=== PATIENT | female | born 1945 | race Caucasian/White ===

== ENCOUNTER 2021-06-05 14:29 | Observation (INO) | payer MEDICARE, OTHER ==
[~2021-06-05] VITALS: Ht 158.8 cm; Wt 70.6 kg
[2021-06-05] MEDS ORDERED: NS 1,000 ML IV ONE (15:35)
[2021-06-05] MEDS ORDERED: EMLA CREAM 5GM TUBE (LIDOCAINE/PRILOCAINE) TOP ONE (15:40)
[2021-06-05 16:52] LABS: EOS % 1.4 % (0.0-3.0); HEMOGLOBIN 7.5 g/dl (12.0-15.5); LYMPH # 0.4 10^3/uL (1.5-5.0); LYMPH % 58.3 % (24.0-44.0); MEAN CORPUSCULAR HEMOGLOBIN 27.8 pg (27.0-33.0); MEAN CORPUSCULAR HGB CONC 32.6 g/dl (32.0-36.5); MEAN CORPUSCULAR VOLUME 85.2 fl (80.0-96.0); MONO # 0.1 10^3/uL (0.0-0.8); MONO % 15.3 % (2.0-8.0)
[2021-06-05 17:16] LABS: ALBUMIN 2.5 GM/DL (3.2-5.2); BILIRUBIN,TOTAL 1.9 MG/DL (0.2-1.0); CALCIUM LEVEL 8.1 MG/DL (8.8-10.2); CREATININE FOR GFR 1.23 MG/DL (0.55-1.30); GLOMERULAR FILTRATION RATE 45.6 (>39); MAGNESIUM LEVEL 1.5 MG/DL (1.8-2.4); PLATELET COUNT, AUTOMATED 76 10^3/uL (150-450); POTASSIUM SERUM 3.3 MEQ/L (3.5-5.1); TOTAL PROTEIN 5.2 GM/DL (6.4-8.2); WHITE BLOOD COUNT 0.7 10^3/uL (4.0-10.0)
[2021-06-05] MEDS ORDERED: METO1TAB7 PO (17:18)
[2021-06-05] MEDS ORDERED: AMLO1TAB25 PO (17:18)
[2021-06-05] MEDS ORDERED: LOPE1CAP5 PO (17:18)
[2021-06-05] MEDS ORDERED: CYMB1CAP5 PO (17:18)
[2021-06-05] MEDS ORDERED: ANAS1TAB2 (17:18)
[2021-06-05] MEDS ORDERED: ATOR1TAB19 PO (17:18)
[2021-06-05] MEDS ORDERED: ALPR0.25 PO (17:18)
[2021-06-05] MEDS ORDERED: RAMI1CAP26 PO (17:18)
[2021-06-05] MEDS ORDERED: ONDA8TAB10 PO (17:18)
[2021-06-05] MEDS ORDERED: CLON-412 PO (17:18)
[2021-06-05 17:19] LABS: NEUTROPHILS # 0.2 10^3/uL (1.5-8.5)
[2021-06-05] MEDS ORDERED: MAG SULF 1GM/100ML (MAG RUN) 1 GM in IV 1 EA IV ONE ×4 (17:35)
[2021-06-05] MEDS ORDERED: POTASSIUM CHLORIDE 10 MEQ SR TABLET PO ONE (17:35)
[2021-06-05] MEDS ORDERED: MAALOX 30 ML SUSP *UDC PO PRN (20:05)
[2021-06-05] MEDS ORDERED: DEXA2TA PO (20:05)
[2021-06-05] MEDS ORDERED: MOM 30ML SUSPENSION UDC PO PRN (20:05)
[2021-06-05] MEDS ORDERED: OYST1TAB PO (20:05)
[2021-06-05] MEDS ORDERED: ACETAMINOPHEN TAB 650MG DOSE (2X325MG) PO PRN (20:05)
[2021-06-05] MEDS ORDERED: PEGFILGRASTIM 6 MG/0.6ML SYR (NEULASTA) (J2505 PER 6MG) SC ONE ×2 (20:05→22:00)
--- NOTE | 2021-06-05 20:09 | HPEPDOC ---
[facility] Medical History & Physical Date of Admission Jun 05, 2021 Date of Service: Jun 05, 2021 Other Provider Juju Ramirez Attending Physician: HIRAL BRANDON MD History and Physical TIME OF SERVICE: 933pm CHIEF COMPLAINT: diarrhea HISTORY OF PRESENT ILLNESS: is a 75 yr old F who had her last dose of 4 cycles of chemo for breast cancer, at [facility], on May 30. Today she presented w c/o, non-bloody diarrhea that begun on Thursday, weakness, poor appetite & difficulties walking. She denied having v/f/c. Because she was found to have pancytopenia, consulted the Hem/Onc service at [facility] who recommended Neulasta and supportive care. REVIEW OF SYSTEMS: 10-point review of systems negative except as listed in HPI PAST MEDICAL/ SURGICAL HISTORY: Stage 2 breast cancer s/p lumpectomy and chemo, Resistant HTN, DLP, Hypothyroidism, anxiety /depression, Partial thyroidectomy (benign lesion), cataract surgery, SOCIAL HISTORY: she doesnt smoke or use alcohol FAMILY HISTORY: n/a ALLERGIES: Please see below. HOME MEDICATIONS: Please see below. PHYSICAL EXAMINATION: Vital Signs Date Time Temp Pulse Resp B/P (MAP) Pulse Ox O2 Delivery O2 Flow Rate FiO2 06/05/21 14:43 79 124/60 (81) 98 06/05/21 14:46 99.7 15 06/05/21 18:15 Room Air GENERAL APPEARANCE: well nourished & developed /appears chronically ill HEENT: EOMI/ MMM&P CARDIOVASCULAR: RRR/NMRG LUNGS: CTAB on RA ABDOMEN: contour distended MUSCULOSKELETAL: NCAT INTEGUMENT: slightly pale /not flushed or diaphoretic NEUROLOGICAL: CN 2-12 grossly intact/ speech not dysarthric PSYCHIATRIC: A&Ox 3/ able to understand and follow all commands LABORATORY DATA: IMAGING: n/a MICROBIOLOGY: respiratory panel neg /GI panel pending ASSESSMENT: is a 75 yr old w a hx of Stage 2 breast cancer s/p lumpectomy and chemo, HTN, DLP, Hypothyroidism & anxiety /depression who is admitted for management of chemo induced pancytopenia, diarrhea, and hypokalemia. PLAN: 1 Pancytopenia 2/2 chemo She has severe neutropenia with a ANC of 175; fortunately she hasnt spiked a fever Plan: admit to medical floor / neutropenic precautions /neutropenic diet / Per Hem/Onc team at [facility] administer Neulasta / type & screen / iron studies / pending repeat Hg the day time team may consider re-consulting Hem/Onc to determine if the patient should also receive Epogen / pending GI panel to r/o infection hold loperamide 2 Hypokalemia 2/2 Diarrhea Plan: replete K / f/u Mg / f/u GI panel 3 Weakness likely 2/2 hypokalemia & chemo Plan: replete K / the day time team may consider placing a PT consult 4 Stage 2 breast cancer Plan; obtain records from [facility] 5 Resistant HTN Plan: amlodipine, metoprolol, ramipril, clonidine 6 DLP Plan: statin 7 Hypothyroidism Plan: levothyroxine 8 anxiety /depression Plan: alprazolam, duloxetine DVT px w Fondaparinux bc of low plts Dispo: home after less than 2 midnights stay Home Medications Scheduled Amlodipine Besylate (Amlodipine Besylate) 10 Mg Tablet, 10 MG PO DAILY Atorvastatin Calcium (Atorvastatin Calcium) 10 Mg Tablet, 10 MG PO QHS Calcium Carbonate (Calcium) 500 Mg Tablet, 500 MG PO DAILY Clonidine HCl (Clonidine HCl) 0.1 Mg Tablet, 0.2 MG PO QHS Dexamethasone (Dexamethasone) 2 Mg Tablet, 4 MG PO ASDIRECTED BID FOR 2 DAYS AFTER CHEMO Duloxetine Hcl (Cymbalta) 30 Mg Capsule.dr, 60 MG PO BID PATIENT REQUIRES BRAND NAME Metoprolol Succinate (Metoprolol Succinate) 50 Mg Tab.er.24h, 150 MG PO QHS Ramipril (Ramipril) 10 Mg Capsule, 10 MG PO DAILY Scheduled PRN Alprazolam (Alprazolam) 0.25 Mg Tablet, 0.25 MG PO BID PRN for ANXIETY Loperamide HCl (Loperamide) 2 Mg Capsule, 2 MG PO QID PRN for DIARRHEA Ondansetron HCl (Ondansetron HCl) 8 Mg Tablet, 8 MG PO Q8H PRN for NAUSEA OR VOMITING Allergies Coded Allergies: trovafloxacin (Verified Allergy, Intermediate, "turn bright pink all over the place", 06/05/21) amoxicillin (Verified Adverse Reaction, Mild, diarrhea, 06/05/21) cefdinir (Verified Adverse Reaction, Mild, diarrhea, 06/05/21) clavulanic acid (Verified Adverse Reaction, Mild, diarrhea, 06/05/21) A-FIB/CHADSVASC A-FIB History Current/History of A-Fib/PAF?: No Current PO Anticoag Therapy: No HIRAL BRANDON MD Jun 05, 2021 20:09
[2021-06-05] MEDS ORDERED: HOME MED LIST COMPLETE! XX SCH (20:10)
[2021-06-05 21:47] LABS: RSV AMPLIFICATION NEGATIVE (NEGATIVE)
[2021-06-05] MEDS ORDERED: ONDANSETRON 4 MG TAB PO PRN (22:15)
[2021-06-05] MEDS ORDERED: ALPRAZolam 0.25 MG TAB PO PRN (22:15)
[2021-06-05 22:16] LABS: HEMOGLOBIN 7.5 g/dl (12.0-15.5)
[2021-06-05 22:30] LABS: INR 1.19; PROTHROMBIN TIME 15.5 SECONDS (12.7-14.5)
[2021-06-05 22:38] LABS: MAGNESIUM LEVEL 2.5 MG/DL (1.8-2.4); PERCENT SATURATION 8.8 % (13.2-45.0)
[2021-06-05 22:48] LABS: FOLATE 4.1 NG/ML (>5.4)
[2021-06-05] MEDS: METOPROLOL SUCC (TopROL XL) 50MG **XL** TAB PO SCH (22:55)
[2021-06-05] MEDS: cloNIDine 0.1MG TABLET PO SCH (22:56)
[2021-06-05] MEDS: DULoxetine 30 MG CAP (CYMBALTA) PO SCH (22:56)
[2021-06-05 23:30] VITALS: BP 133/67
[2021-06-06] VITALS (13 sets, daily range): BP systolic 113–144; BP diastolic 59–79
[2021-06-06] MEDS ORDERED: MAGNESIUM OXIDE 400MG TAB (MAG-OX) PO ONE (05:15)
[2021-06-06 06:56] LABS: MEAN CORPUSCULAR HGB CONC 32.7 g/dl (32.0-36.5); MEAN CORPUSCULAR VOLUME 85.8 fl (80.0-96.0); RED BLOOD COUNT 2.39 10^6/uL (4.00-5.40)
[2021-06-06 07:00] LABS: HEMATOCRIT 20.5 % (36.0-47.0); PLATELET COUNT, AUTOMATED 68 10^3/uL (150-450)
[2021-06-06 07:01] LABS: HEMOGLOBIN 6.7 g/dl (12.0-15.5)
[2021-06-06 07:10] LABS: CALCIUM LEVEL 7.5 MG/DL (8.8-10.2); CREATININE FOR GFR 1.13 MG/DL (0.55-1.30); GLOMERULAR FILTRATION RATE 50.2 (>39); POTASSIUM SERUM 3.5 MEQ/L (3.5-5.1)
[2021-06-06] MEDS ORDERED: ENOXAPARIN 40MG/0.4ML SYRINGE (J1650 PER 10MG) SC SCH (09:00)
[2021-06-06] MEDS: DULoxetine 30 MG CAP (CYMBALTA) PO SCH ×2 (09:42→21:53)
[2021-06-06] MEDS: ramipriL 5 MG CAP PO SCH (09:45)
[2021-06-06] MEDS: FONDAPARINUX SODIUM 2.5 MG/0.5 ML SYR (J1652 PER 0.5MG) SQ SCH (09:46)
--- NOTE | 2021-06-06 12:22 | IPNPDOC ---
Text Note Date of Service The patient was seen on 06/06/21. NOTE Subjective: Patient is a 75-year-old female who presented to the hospital with nonbloody diarrhea and was found to have pancytopenia. Patient had her last dose of her 4 cycles of chemotherapy for breast cancer at [facility] on May 30. Patient says she has been having poor appetite and difficulty walking. Heme-onc at [facility] was consulted by emergency department last night who recommended Neulasta and supportive care. Patient says that she did she is feeling tired but is otherwise feeling well. Review of systems: General: Patient denies fevers HEENT: Patient denies headaches Cardiovascular: Patient denies chest pain Respiratory: Patient denies shortness of breath, cough GI: Patient denies abdominal pain, nausea, vomiting, diarrhea : Patient denies increased frequency or pain with urination Extremities: Patient denies swelling or pain in extremities Neurological: Patient denies numbness or tingling in legs Physical exam: Vitals: See below General: Alert and oriented female patient who was sitting up in bed when I walked in the room. Patient not appear to be in acute distress. HEENT: Normocephalic, atraumatic, moist mucous membranes. Neck: No lymphadenopathy or thyromegaly Cardiac: Regular rate and rhythm, no murmurs, normal S1, normal S2 Pulm: Clear to auscultation bilaterally. No wheezes, rhonchi, rales Abd: Nondistended, nontender to palpation, normal bowel sounds Ext: No edema bilateral lower extremities Labs: See below Imaging: No new imaging has been performed Assessment/plan: 75-year-old female with stage II breast cancer status post lumpectomy and chemotherapy, hypertension, dyslipidemia, hypothyroidism and anxiety/depression who was admitted for management of chemo induced pancytopenia, diarrhea and hypokalemia. 1. Pancytopenia secondary to chemotherapy. Patient has severe neutropenia with an ANC of 175. Patient has not had a fever. Patient will be admitted for neutropenic precautions. Patient's hemoglobin was 6.7 this morning so patient will be transfused 2 units of packed red blood cells. 2. Hypokalemia secondary to diarrhea. GI panel has been ordered but is not been sent as the diarrhea has slowed down. Patient's potassium level has returned into normal limits. 3. Weakness likely secondary to hypokalemia chemotherapy. Replete potassium. Physical therapy can see the patient after her blood transfusions. 4. Diarrhea, most likely secondary to chemotherapy. GI panel is pending at this time however, it appears that the patient diarrhea has resolved. We will continue to monitor. 5. Hyponatremia in the setting of nausea and diarrhea. Patient did receive a 1 L fluid bolus and we will continue to monitor. 6. Stage II breast cancer. We are awaiting records from [facility]. 7. Resistant hypertension. Continue her home medications. 8. Dyslipidemia. Continue home medication. 9. Hypothyroidism. Continue levothyroxine. 10. Anxiety/depression. Continue with home medications. DVT Prophylaxis: Fondaparinux Disposition: Pending improvement in the patient's blood counts. VS,Fishbone, I+O VS, Fishbone, I+O Laboratory Tests 06/05/21 16:37 06/05/21 22:01 06/06/21 06:34 Vital Signs Date Time Temp Pulse Resp B/P (MAP) Pulse Ox O2 Delivery O2 Flow Rate FiO2 06/06/21 12:12 98.6 75 18 117/59 94 Room Air I&O- Last 24 Hours up to 6 AM 06/06/21 06:00 Intake Total 220 ml Balance 220 ml ANGIE CHEN DO Jun 06, 2021 12:22
[2021-06-06] MEDS ORDERED: SODIUM CHLORIDE 0.9% INJ 10 ML SYR IV PRN (18:50)
[2021-06-06 19:55] LABS: MEAN CORPUSCULAR HEMOGLOBIN 28.5 pg (27.0-33.0); MEAN CORPUSCULAR HGB CONC 34.4 g/dl (32.0-36.5); MEAN CORPUSCULAR VOLUME 82.7 fl (80.0-96.0); RED BLOOD COUNT 4.11 10^6/uL (4.00-5.40); WHITE BLOOD COUNT 5.4 10^3/uL (4.0-10.0)
[2021-06-06 20:26] LABS: HEMOGLOBIN 11.7 g/dl (12.0-15.5)
[2021-06-06 20:29] LABS: ATYPICAL LYMPH 1 % (0-5); EOSINOPHILS 1 % (0-3); LYMPHOCYTES 22 % (16-44); METAMYELOCYTES 4 % (0-0); MONOCYTES 15 % (0-5); NEUTROPHILS 50 % (28-66); PLATELET ESTIMATE INVALID (NORMAL)
[2021-06-06 20:30] LABS: ANISOCYTOSIS 2+
[2021-06-06] MEDS: METOPROLOL SUCC (TopROL XL) 50MG **XL** TAB PO SCH (21:53)
[2021-06-06] MEDS: cloNIDine 0.1MG TABLET PO SCH (21:54)
[2021-06-07 06:00] VITALS: BP 133/72
[2021-06-07 07:41] LABS: HEMATOCRIT 30.9 % (36.0-47.0); HEMOGLOBIN 10.4 g/dl (12.0-15.5); MEAN CORPUSCULAR HEMOGLOBIN 27.8 pg (27.0-33.0); MEAN CORPUSCULAR HGB CONC 33.7 g/dl (32.0-36.5); MEAN CORPUSCULAR VOLUME 82.6 fl (80.0-96.0); RED BLOOD COUNT 3.74 10^6/uL (4.00-5.40); WHITE BLOOD COUNT 12.4 10^3/uL (4.0-10.0)
[2021-06-07 07:54] LABS: CALCIUM LEVEL 7.2 MG/DL (8.8-10.2); CREATININE FOR GFR 1.16 MG/DL (0.55-1.30); GLOMERULAR FILTRATION RATE 48.8 (>39); MAGNESIUM LEVEL 1.9 MG/DL (1.8-2.4); POTASSIUM SERUM 3.4 MEQ/L (3.5-5.1)
[2021-06-07] MEDS ORDERED: POTASSIUM CHLORIDE 10 MEQ SR TABLET PO ONE (08:15)
[2021-06-07 08:30] LABS: PLATELET COUNT, AUTOMATED 43 10^3/uL (150-450)
[2021-06-07 08:43] LABS: ATYPICAL LYMPH 5 % (0-5); LYMPHOCYTES 14 % (16-44); METAMYELOCYTES 3 % (0-0); MONOCYTES 4 % (0-5); MYELOCYTES 1 % (0-0); NEUTROPHILS 54 % (28-66)
[2021-06-07 08:45] LABS: PLATELET ESTIMATE DECREASED (NORMAL)
[2021-06-07 08:50] LABS: PLTBLUE- EDTA FREE CALC 44 K/mm3 (172-450); PLTBLUE- EDTA FREE MACHINE 40 10^3/uL (172-450)
[2021-06-07] MEDS: FONDAPARINUX SODIUM 2.5 MG/0.5 ML SYR (J1652 PER 0.5MG) SQ SCH (08:58)
[2021-06-07 08:59] VITALS: BP 123/67
[2021-06-07] MEDS: ramipriL 5 MG CAP PO SCH (08:59)
[2021-06-07] MEDS: DULoxetine 30 MG CAP (CYMBALTA) PO SCH (09:00)
[2021-06-07] MEDS: POTASSIUM CHLORIDE 10 MEQ SR TABLET PO SCH ×2 (09:15→11:40)
[2021-06-07] MEDS: LOPERAMIDE 2 MG CAPLET PO PRN ×2 (09:15→11:40)
--- NOTE | 2021-06-07 14:36 | DS.PDOC ---
Discharge Summary General Date of Admission Jun 05, 2021 at 14:30 Date of Discharge 06/07/2021 Attending Physician: ANGIE CHEN DO Discharge Summary PROCEDURES PERFORMED DURING STAY: None. ADMITTING DIAGNOSES: 1. Pancytopenia secondary to chemotherapy. 2. Hypokalemia secondary to diarrhea 3. Weakness likely secondary to hyperkalemia chemotherapy 4. Stage II breast cancer 5. Resistant hypertension 6. Dyslipidemia 7. Hypothyroidism 8. Anxiety/depression 9. Diarrhea secondary to chemotherapy DISCHARGE DIAGNOSES: 1. Pancytopenia secondary to chemotherapy. 2. Hypokalemia secondary to diarrhea 3. Weakness likely secondary to hyperkalemia chemotherapy 4. Stage II breast cancer 5. Resistant hypertension 6. Dyslipidemia 7. Hypothyroidism 8. Anxiety/depression 9. Diarrhea secondary to chemotherapy COMPLICATIONS/CHIEF COMPLAINT: Dehydration. HISTORY OF PRESENT ILLNESS: Patient is a 75-year-old female who received the last dose of four cycles of chemotherapy for breast cancer [facility] on May 30. Patient presented with a chief complaint of nonbloody diarrhea that b edna on 06/02/2021. Patient was also found to be weak and had a poor appetite with difficulty walking. Emergency department contacted heme/oncology service [place] who recommended Neulasta and supportive care. Patient was admitted for further treatment. HOSPITAL COURSE: Patient continued of diarrhea and a GI panel was sent and patient was not found to have an infectious cause. Patient was also found to be severely anemic with hemoglobin 6.7. Patient received 2 units of packed red blood cells. Patient was kept an additional night as the blood took a long time to transfuse. On repeat CBC, patient's hemoglobin and white blood cell count had improved. Patient was still feeling weak and having diarrhea on the morning of 06/07/2021 however, loperamide was started at that time. Patient did well throughout the morning and was feeling much better by the mid afternoon. Patient only had one episode of diarrhea from 8:00 on. Patient was deemed ready for discharge and was discharged home on 06/07/2021. I instructed the patient to call her oncology office prior to leaving the hospital to see if she can set up an appointment for 06/10/2021. DISCHARGE MEDICATIONS: Please see below. ALLERGIES: Please see below. PHYSICAL EXAMINATION ON DISCHARGE: VITAL SIGNS: Please see below. General: Alert and oriented female patient who was laying in bed while in the room. Patient not appear to be in any acute distress. HEENT: Normocephalic, atraumatic, moist mucous membranes. Neck: No lymphadenopathy or thyromegaly Cardiac: Regular rate and rhythm, no murmurs, normal S1, normal S2 Pulm: Clear to auscultation bilaterally. No wheezes, rhonchi, rales Abd: Nondistended, nontender to palpation, normal bowel sounds Ext: No edema bilateral lower extremities LABORATORY DATA: Please see below. IMAGING: No imaging was performed during this hospitalization PROGNOSIS: Fair ACTIVITY: As tolerated. DIET: Regular diet DISCHARGE PLAN: Discharge home DISPOSITION: . DISCHARGE INSTRUCTIONS: 1. Follow-up with primary care provider within 3 to 5 days discharge. 2. Follow-up with your oncologist on Thursday 3. Continue take Imodium for diarrhea as instructed by your oncologist 4. Return to the emergency department if symptoms worsen ITEMS TO FOLLOWUP ON ON OUTPATIENT: 1. Continue to follow pancytopenia DISCHARGE CONDITION: Stable. TIME SPENT ON DISCHARGE: 25 minutes. Vital Signs/I&Os Vital Signs Date Time Temp Pulse Resp B/P (MAP) Pulse Ox O2 Delivery O2 Flow Rate FiO2 06/07/21 08:59 123/67 06/07/21 08:59 79 06/07/21 06:00 97.7 19 94 Room Air I&O- Last 24 Hours up to 6 AM 06/07/21 06:00 Intake Total 1450 ml Balance 1450 ml Laboratory Data Labs 24H Laboratory Tests 2 06/06/21 19:34: Immature Granulocyte % (Auto) , Neutrophils (%) (Auto) , Nucleated Red Blood Cells % (auto) 0.9H, Neutrophils 50, Band Neutrophils 7, Lymphocytes (Manual) 22, Monocytes (Manual) 15H, Eosinophils (Manual) 1, Metamyelocytes 4H, Atypical Lymphocytes 1, Anisocytosis 2+, Platelet Estimate INVALID 06/07/21 06:39: Immature Granulocyte % (Auto) , Neutrophils (%) (Auto) , Nucleated Red Blood Cells % (auto) 1.0H, Neutrophils 54, Band Neutrophils 19H, Lymphocytes (Manual) 14L, Monocytes (Manual) 4, Metamyelocytes 3H, Atypical Lymphocytes 5, Platelet Estimate DECREASED, Myelocytes 1H, Red Blood Cell Morphology NORMAL, Immature Platelet Fraction 9.7H, Anion Gap 7L, Glomerular Filtration Rate 48.8, Calcium Level 7.2L, Magnesium Level 1.9 06/07/21 07:15: Platelet Count, EDTA Free 44L CBC/BMP Laboratory Tests 06/06/21 19:34 06/07/21 06:39 Microbiology Microbiology 06/07/21 Gastrointestinal Tract Panel (PCR) - Final, Complete Discharge Medications Scheduled Amlodipine Besylate (Amlodipine Besylate) 10 Mg Tablet, 10 MG PO DAILY, (Reported) Atorvastatin Calcium (Atorvastatin Calcium) 10 Mg Tablet, 10 MG PO QHS, (Reported) Calcium Carbonate (Calcium) 500 Mg Tablet, 500 MG PO DAILY, (Reported) Clonidine HCl (Clonidine HCl) 0.1 Mg Tablet, 0.2 MG PO QHS, (Reported) Dexamethasone (Dexamethasone) 2 Mg Tablet, 4 MG PO ASDIRECTED, (Reported) BID FOR 2 DAYS AFTER CHEMO Duloxetine Hcl (Cymbalta) 30 Mg Capsule.dr, 60 MG PO BID, (Reported) PATIENT REQUIRES BRAND NAME Metoprolol Succinate (Metoprolol Succinate) 50 Mg Tab.er.24h, 150 MG PO QHS, (Reported) Ramipril (Ramipril) 10 Mg Capsule, 10 MG PO DAILY, (Reported) Scheduled PRN Alprazolam (Alprazolam) 0.25 Mg Tablet, 0.25 MG PO BID PRN for ANXIETY, (Reported) Loperamide HCl (Loperamide) 2 Mg Capsule, 2 MG PO QID PRN for DIARRHEA, (Reported) Ondansetron HCl (Ondansetron HCl) 8 Mg Tablet, 8 MG PO Q8H PRN for NAUSEA OR VOMITING, (Reported) Allergies Coded Allergies: trovafloxacin (Verified Allergy, Intermediate, "turn bright pink all over the place", 06/05/21) amoxicillin (Verified Adverse Reaction, Mild, diarrhea, 06/05/21) cefdinir (Verified Adverse Reaction, Mild, diarrhea, 06/05/21) clavulanic acid (Verified Adverse Reaction, Mild, diarrhea, 06/05/21) ANGIE CHEN DO Jun 07, 2021 14:36
== END 2021-06-07 15:25 | disposition home or self-care (01) ==
LOC: EDBD 14:29 → M ED 14:29 → EDSEX 14:29 → M ED INP 14:30 → ENRESERV 22:49 → M MS5PR 23:30
PROVIDERS: ADMIT Internal Medicine; ATTEND Family Medicine
DX: D61.810 Antineoplastic chemotherapy induced pancytopenia (principal); E87.6 Hypokalemia; R19.7 Diarrhea, unspecified; R53.1 Weakness; C50.919 Malignant neoplasm of unspecified site of unspecified female breast; I10 Essential (primary) hypertension; E78.49 Other hyperlipidemia; E03.9 Hypothyroidism, unspecified; F41.9 Anxiety disorder, unspecified; F32.9 Major depressive disorder, single episode, unspecified; Z92.23 Personal history of estrogen therapy; Z79.899 Other long term (current) drug therapy; Z88.0 Allergy status to penicillin; Z88.1 Allergy status to other antibiotic agents
CPT/HCPCS: 36415; 36430; 80048; 80053; 82607; 82728; 82746; 83550; 83735; 85014; 85018; 85025; 85027; 85049; 85055; 85610; 86850; 86900; 86901; 86920; 87505; 87631; 96361; 96372; 96374; 99285; G0378; J1642; J1652; J2505; J3475; P9016

== ENCOUNTER 2021-06-17 11:41 | Inpatient (IN) | payer MEDICARE, OTHER ==
[~2021-06-17] VITALS: Ht 157.5 cm; Wt 68.2 kg
[~2021-06-17 11:41] MED LIST: ALPR0.25 PO; AMLO1TAB25 PO; ANAS1TAB2; ATOR1TAB19 PO; CLON-412 PO; CYMB1CAP5 PO; DEXA2TA PO; LOPE1CAP5 PO; METO1TAB7 PO; ONDA-84 PO; OYST1TAB PO; RAMI1CAP26 PO
[2021-06-17 12:59] LABS: HEMATOCRIT 30.3 % (36.0-47.0); HEMOGLOBIN 9.9 g/dl (12.0-15.5); MEAN CORPUSCULAR HEMOGLOBIN 27.6 pg (27.0-33.0); MEAN CORPUSCULAR HGB CONC 32.7 g/dl (32.0-36.5); MEAN CORPUSCULAR VOLUME 84.4 fl (80.0-96.0); PLATELET COUNT, AUTOMATED 142 10^3/uL (150-450); RED BLOOD COUNT 3.59 10^6/uL (4.00-5.40)
[2021-06-17 13:05] LABS: WHITE BLOOD COUNT 33.1 10^3/uL (4.0-10.0)
[2021-06-17] MEDS ORDERED: NS 1,000 ML IV ONE ×2 (13:20)
[2021-06-17 13:29] LABS: RSV AMPLIFICATION NEGATIVE (NEGATIVE)
[2021-06-17 13:31] LABS: ALBUMIN 2.9 GM/DL (3.2-5.2); BILIRUBIN,DIRECT 1.4 MG/DL (0.0-0.2); CALCIUM LEVEL 8.4 MG/DL (8.8-10.2); CREATININE FOR GFR 1.84 MG/DL (0.55-1.30); GLOMERULAR FILTRATION RATE 28.6 (>39); MAGNESIUM LEVEL 2.1 MG/DL (1.8-2.4); MB/CK RELATIVE INDEX 3.12 (< OR =4); POTASSIUM SERUM 3.5 MEQ/L (3.5-5.1); TOTAL PROTEIN 5.4 GM/DL (6.4-8.2); TROPONIN I 0.02 NG/ML (< 0.10)
[2021-06-17 13:43] LABS: ATYPICAL LYMPH 1 % (0-5); LYMPHOCYTES 4 % (16-44); METAMYELOCYTES 1 % (0-0); NEUTROPHILS 88 % (28-66)
[2021-06-17 13:45] LABS: ANISOCYTOSIS 1+; HYPOCHROMASIA 1+; OVALOCYTES 1+; TEAR DROP CELLS 1+
[2021-06-17] MEDS ORDERED: KCL 20MEQ IN 100ML SWI (KRUN) 20 MEQ in IV 1 EA IV ONE ×4 (13:50→15:00)
[2021-06-17 13:57] LABS: PLATELET ESTIMATE DECREASED (NORMAL)
[2021-06-17] MEDS ORDERED: HumuLIN R (REGULAR) INSULIN (NovoLIN R) **100U/ML** PER UNIT IV ONE (14:35)
[2021-06-17 14:53] LABS: ACETONE/KETONE 5.77 MG/DL (<2.81)
[2021-06-17] MEDS ORDERED: HOME MED LIST COMPLETE! XX SCH (15:00)
[2021-06-17] MEDS ORDERED: KCL 20MEQ in NS 1000ML 1,000 ML IV SCH (15:15)
[2021-06-17] MEDS ORDERED: INSULIN REGULAR IN 0.9 % NACL 100 UNIT in IV 1 EA IV SCH ×2 (15:15)
[2021-06-17] MEDS ORDERED: ONDANSETRON 4 MG TAB PO PRN (15:15)
[2021-06-17] MEDS ORDERED: ACETAMINOPHEN TAB 650MG DOSE (2X325MG) PO PRN (15:15)
[2021-06-17] MEDS ORDERED: ALPRAZolam 0.25 MG TAB PO PRN (15:15)
[2021-06-17] MEDS ORDERED: PIPERACILLIN/TAZOBACTAM SOD 4.5 GM in D5W MINI-BAG PLUS 50 ML IV STA (16:00)
[2021-06-17 17:37] LABS: VENOUS BASE EXCESS -2.4 (-2.0-2.0); VENOUS HCO3 21.6 MEQ/L (23.0-27.0); VENOUS PARTIAL PRESSURE CO2 34.3 mmHg (38.0-50.0); VENOUS PARTIAL PRESSURE O2 70.3 mmHg (30.0-50.0); VENOUS PH 7.417 UNITS (7.330-7.430); VENOUS STANDARD HCO3 22.4 MEQ/L; VENOUS TOTAL CO2 22.7 MEQ/L (24.0-28.0)
[2021-06-17 18:00] LABS: THYROID STIMULATING HORMONE 0.17 uIU/ML (0.358-3.740); THYROXINE (T4) 7.9 UG/DL (4.5-12.0)
[2021-06-17 18:24] LABS: CALCIUM LEVEL 7.9 MG/DL (8.8-10.2); CREATININE FOR GFR 1.69 MG/DL (0.55-1.30); GLOMERULAR FILTRATION RATE 31.6 (>39); PHOSPHORUS LEVEL 2.1 MG/DL (2.5-4.9); POTASSIUM SERUM 3.8 MEQ/L (3.5-5.1)
[2021-06-17 18:40] VITALS: BP 164/80
[2021-06-17 19:35] LABS: HEMOGLOBIN A1c 8.5 %
[2021-06-17] MEDS: INSULIN IV RATE CHANGE DOCUMENTATION ML/HR XX SCH ×2 (19:49→20:52)
[2021-06-17 20:00] VITALS: BP 160/80
[2021-06-17] MEDS ORDERED: VANCOMYCIN HCL 750 MG, VIAL MATE ADAPTER 1 EACH in NS 250 ML IV ONE ×2 (20:00→21:00)
[2021-06-17] MEDS ORDERED: GLUCAGON INJ 1MG VIAL SC PRN (20:50)
[2021-06-17] MEDS ORDERED: DEXTROSE 50% 50 ML SYRINGE IV PRN (20:50)
[2021-06-17] MEDS ORDERED: GLUCOSE 4GM CHEW TABLET PO PRN (20:50)
[2021-06-17 21:00] VITALS: BP 153/74
[2021-06-17] MEDS: HumaLOG INSULIN (NovoLOG) PER UNIT SC SCH (21:00)
[2021-06-17] MEDS: DULoxetine 30MG CAPSULE (CYMBALTA) PO SCH (21:00)
[2021-06-17] MEDS: ATORVASTATIN 10 MG TAB PO SCH (21:00)
[2021-06-17] MEDS: METOPROLOL SUCC (TopROL XL) 50MG **XL** TAB PO SCH (21:00)
[2021-06-17] MEDS: cloNIDine 0.1MG TABLET PO SCH (21:00)
[2021-06-17] MEDS: HEPARIN SOD (PORCINE) 5000UNITS/ML 1ML VIAL/SYRINGE SC SCH (21:03)
[2021-06-17] MEDS: LEVEMIR (INSULIN DETEMIR) 1 UNITS/0.01ML SC SCH (21:31)
[2021-06-17] MEDS: D5W/0.45% SODIUM CHLORIDE 1,000 ML IV SCH (21:54)
[2021-06-17 21:57] LABS: CALCIUM LEVEL 7.9 MG/DL (8.8-10.2); CREATININE FOR GFR 1.49 MG/DL (0.55-1.30); GLOMERULAR FILTRATION RATE 36.5 (>39); PHOSPHORUS LEVEL 1.3 MG/DL (2.5-4.9); POTASSIUM SERUM 3.2 MEQ/L (3.5-5.1)
[2021-06-17 22:00] VITALS: BP 153/76
[2021-06-17] MEDS ORDERED: K-PHOS NEUTRAL 250MG TABLET (SOD.PHOSPHATE/POT.PHOSPHATE) PO SCH (22:15)
[2021-06-17] MEDS ORDERED: POTASSIUM CHLORIDE 10MEQ SR TABLET PO ONE (22:15)
[2021-06-17 23:00] VITALS: BP 146/78
[2021-06-17] MEDS ORDERED: HumaLOG INSULIN (NovoLOG) PER UNIT SC STA (23:04)
[2021-06-18] VITALS (11 sets, daily range): BP systolic 118–157; BP diastolic 69–90
[2021-06-18] MEDS: PIPERACILLIN/TAZOBACTAM SOD 3.375 GM in D5W MINI-BAG PLUS 50 ML IV SCH ×5 (00:45→23:18)
[2021-06-18 01:07] LABS: VENOUS BASE EXCESS 1.4 (-2.0-2.0); VENOUS HCO3 25.4 MEQ/L (23.0-27.0); VENOUS O2 SATURATION 95.5 % (60.0-80.0); VENOUS PARTIAL PRESSURE CO2 37.7 mmHg (38.0-50.0); VENOUS PARTIAL PRESSURE O2 80.9 mmHg (30.0-50.0); VENOUS PH 7.446 UNITS (7.330-7.430); VENOUS STANDARD HCO3 25.7 MEQ/L; VENOUS TOTAL CO2 26.5 MEQ/L (24.0-28.0)
[2021-06-18 01:44] LABS: CALCIUM LEVEL 7.7 MG/DL (8.8-10.2); CREATININE FOR GFR 1.3 MG/DL (0.55-1.30); GLOMERULAR FILTRATION RATE 42.7 (>39); PHOSPHORUS LEVEL 1.6 MG/DL (2.5-4.9); POTASSIUM SERUM 3.3 MEQ/L (3.5-5.1)
[2021-06-18] MEDS ORDERED: POTASSIUM CHLORIDE 10MEQ SR TABLET PO ONE (01:55)
[2021-06-18] MEDS ORDERED: LOPERAMIDE 2 MG CAPLET PO ONE (02:15)
[2021-06-18] MEDS: D5W/0.45% SODIUM CHLORIDE 1,000 ML IV SCH (03:30)
[2021-06-18] MEDS ORDERED: VANCOMYCIN HCL 1,000 MG, VIAL MATE ADAPTER 1 EACH in NS 250 ML IV SCH (04:00)
[2021-06-18 05:11] LABS: VENOUS BASE EXCESS -0.1 (-2.0-2.0); VENOUS O2 SATURATION 96.5 % (60.0-80.0); VENOUS PARTIAL PRESSURE CO2 36.9 mmHg (38.0-50.0); VENOUS PARTIAL PRESSURE O2 87.7 mmHg (30.0-50.0); VENOUS PH 7.431 UNITS (7.330-7.430); VENOUS STANDARD HCO3 24.4 MEQ/L; VENOUS TOTAL CO2 25.1 MEQ/L (24.0-28.0)
[2021-06-18 05:18] LABS: HEMATOCRIT 30.8 % (36.0-47.0); HEMOGLOBIN 10.1 g/dl (12.0-15.5); MEAN CORPUSCULAR HEMOGLOBIN 27.8 pg (27.0-33.0); MEAN CORPUSCULAR HGB CONC 32.8 g/dl (32.0-36.5); MEAN CORPUSCULAR VOLUME 84.8 fl (80.0-96.0); PLATELET COUNT, AUTOMATED 111 10^3/uL (150-450); RED BLOOD COUNT 3.63 10^6/uL (4.00-5.40)
[2021-06-18 05:24] LABS: WHITE BLOOD COUNT 34.9 10^3/uL (4.0-10.0)
[2021-06-18 05:43] LABS: ACETONE/KETONE 0.61 MG/DL (<2.81); ALBUMIN 2.6 GM/DL (3.2-5.2); BILIRUBIN,TOTAL 2.7 MG/DL (0.2-1.0); CALCIUM LEVEL 7.6 MG/DL (8.8-10.2); CREATININE FOR GFR 1.36 MG/DL (0.55-1.30); GLOMERULAR FILTRATION RATE 40.6 (>39); MAGNESIUM LEVEL 1.7 MG/DL (1.8-2.4); PHOSPHORUS LEVEL 2.1 MG/DL (2.5-4.9); POTASSIUM SERUM 3.3 MEQ/L (3.5-5.1); TOTAL PROTEIN 4.8 GM/DL (6.4-8.2)
[2021-06-18] MEDS: HumaLOG INSULIN (NovoLOG) PER UNIT SC SCH ×4 (07:30→21:10)
[2021-06-18] MEDS ORDERED: MAG SULF 1GM/100ML (MAG RUN) 1 GM in IV 1 EA IV ONE (08:00)
[2021-06-18] MEDS: NEUTRA-PHOS 1.5 GM PACKET PO SCH ×3 (08:33→18:00)
[2021-06-18] MEDS: PANTOPRAZOLE 40MG VIAL (C9113 PER 1) IV SCH (08:34)
[2021-06-18] MEDS: DULoxetine 30MG CAPSULE (CYMBALTA) PO SCH ×2 (08:37→21:04)
[2021-06-18] MEDS: LEVEMIR (INSULIN DETEMIR) 1 UNITS/0.01ML SC SCH ×2 (09:00→21:09)
[2021-06-18] MEDS: HEPARIN SOD (PORCINE) 5000UNITS/ML 1ML VIAL/SYRINGE SC SCH ×2 (09:00→21:08)
[2021-06-18] MEDS: POTASSIUM CHLORIDE 10MEQ SR TABLET PO SCH ×2 (09:00→21:00)
[2021-06-18] MEDS: cloNIDine 0.1MG TABLET PO SCH (21:04)
[2021-06-18] MEDS: ATORVASTATIN 10 MG TAB PO SCH (21:05)
[2021-06-18] MEDS: METOPROLOL SUCC (TopROL XL) 50MG **XL** TAB PO SCH (21:05)
[2021-06-19] MEDS: SODIUM CHLORIDE 0.9% INJ 10 ML SYR IV PRN ×2 (00:42→06:52)
[2021-06-19 01:33] VITALS: BP 140/62
[2021-06-19] MEDS: PIPERACILLIN/TAZOBACTAM SOD 3.375 GM in D5W MINI-BAG PLUS 50 ML IV SCH ×2 (05:25→12:20)
[2021-06-19 06:00] VITALS: BP 140/82
[2021-06-19] MEDS ORDERED: INSUDET SC (08:31)
[2021-06-19] MEDS ORDERED: BACI1CAP PO (08:35)
[2021-06-19] MEDS ORDERED: BD P31MI2 SC (08:35)
[2021-06-19] MEDS ORDERED: BLOO-76 MC (08:35)
[2021-06-19] MEDS ORDERED: [UNRECOGNIZED DRUG - CODE] XX (08:35)
[2021-06-19] MEDS ORDERED: LEVO500T4 PO (08:35)
[2021-06-19] MEDS ORDERED: ACCUKIT10 XX (08:35)
[2021-06-19] MEDS: HumaLOG INSULIN (NovoLOG) PER UNIT SC SCH ×2 (08:46→12:00)
[2021-06-19] MEDS ORDERED: LEVE1INJ5 SC (08:48)
[2021-06-19] MEDS: NEUTRA-PHOS 1.5 GM PACKET PO SCH ×2 (08:53→12:20)
[2021-06-19] MEDS: DULoxetine 30MG CAPSULE (CYMBALTA) PO SCH (08:54)
[2021-06-19] MEDS: POTASSIUM CHLORIDE 10MEQ SR TABLET PO SCH ×2 (08:54→09:00)
[2021-06-19 08:56] VITALS: BP 135/76
[2021-06-19] MEDS: HEPARIN SOD (PORCINE) 5000UNITS/ML 1ML VIAL/SYRINGE SC SCH (08:56)
[2021-06-19] MEDS: PANTOPRAZOLE 40MG VIAL (C9113 PER 1) IV SCH (08:56)
[2021-06-19] MEDS ORDERED: SODIUM CHLORIDE 0.9% INJ 10 ML SYR IV SCH (09:00)
[2021-06-19] MEDS ORDERED: LEVEMIR (INSULIN DETEMIR) 1 UNITS/0.01ML SC SCH (09:00)
[2021-06-19 10:00] VITALS: BP 133/76
[2021-06-19 10:46] LABS: MEAN CORPUSCULAR HEMOGLOBIN 27.9 pg (27.0-33.0); MEAN CORPUSCULAR HGB CONC 32.4 g/dl (32.0-36.5); MEAN CORPUSCULAR VOLUME 86.3 fl (80.0-96.0); RED BLOOD COUNT 3.94 10^6/uL (4.00-5.40); WHITE BLOOD COUNT 24.4 10^3/uL (4.0-10.0)
[2021-06-19 11:05] LABS: CALCIUM LEVEL 7.9 MG/DL (8.8-10.2); CREATININE FOR GFR 1.29 MG/DL (0.55-1.30); GLOMERULAR FILTRATION RATE 43.1 (>39); POTASSIUM SERUM 3.4 MEQ/L (3.5-5.1)
[2021-06-19 11:24] LABS: PLATELET COUNT, AUTOMATED 85 10^3/uL (150-450)
[2021-06-19 11:28] LABS: LYMPHOCYTES 4 % (16-44); METAMYELOCYTES 1 % (0-0); MONOCYTES 3 % (0-5); MYELOCYTES 1 % (0-0); NEUTROPHILS 90 % (28-66); PLATELET ESTIMATE DECREASED (NORMAL)
[2021-06-19 11:29] LABS: ANISOCYTOSIS 1+
== END 2021-06-19 14:13 | disposition home health service (06) | DRG 638 ==
LOC: EDUNIT# 11:41 → EDBD 11:41 → M ED 11:41 → M ED INP 15:14 → ENRESERV 16:05 → M ICU 18:30 → M MSPAV 06-18 15:43
PROVIDERS: ADMIT Internal Medicine; ATTEND General Practice
DX: E11.10 Type 2 diabetes mellitus with ketoacidosis without coma (principal); N17.9 Acute kidney failure, unspecified; N39.0 Urinary tract infection, site not specified; C50.919 Malignant neoplasm of unspecified site of unspecified female breast; F41.9 Anxiety disorder, unspecified; F32.9 Major depressive disorder, single episode, unspecified; E03.9 Hypothyroidism, unspecified; E78.5 Hyperlipidemia, unspecified; I10 Essential (primary) hypertension; Z92.21 Personal history of antineoplastic chemotherapy; Z79.899 Other long term (current) drug therapy; Z79.4 Long term (current) use of insulin; B96.5 Pseudomonas (aeruginosa) (mallei) (pseudomallei) as the cause of diseases classified elsewhere; K57.30 Diverticulosis of large intestine without perforation or abscess without bleeding; K80.20 Calculus of gallbladder without cholecystitis without obstruction; E87.6 Hypokalemia; K44.9 Diaphragmatic hernia without obstruction or gangrene; Z88.8 Allergy status to other drugs, medicaments and biological substances; Z88.0 Allergy status to penicillin; E86.0 Dehydration; E83.42 Hypomagnesemia